=== PATIENT | female | born 1970 | race Caucasian/White ===

== ENCOUNTER 2017-12-12 15:10 | Emergency (ER) | payer MEDICARE, OTHER ==
[~2017-12-12] VITALS: Ht 565.3 cm; Wt 86.0 kg
[~2017-12-12 15:10] MED LIST: ALBU6.7H INH; DEXT20TA6 PO; LACT10SO PO; LISD70CA PO; OMEP40CA37 PO
[2017-12-12 15:15] VITALS: BP 126/88
[2017-12-12] MEDS ORDERED: ibuprofen tablet 400 MG TABLET PO ONE (15:50)
== END 2017-12-12 16:07 | disposition home or self-care (01) ==
LOC: ER 15:10
DX: M79.672 Pain in left foot (principal); M79.671 Pain in right foot; Z90.49 Acquired absence of other specified parts of digestive tract; Z98.890 Other specified postprocedural states; Z88.5 Allergy status to narcotic agent; Z88.0 Allergy status to penicillin; Z79.899 Other long term (current) drug therapy
CPT/HCPCS: 99282

== ENCOUNTER 2018-03-04 16:26 | Emergency (ER) | payer MEDICARE ==
[~2018-03-04] VITALS: Ht 162.6 cm; Wt 80.0 kg
[2018-03-04 16:28] VITALS: BP 119/79
[2018-03-04] MEDS ORDERED: albuterol 2.5 MG/3 ML nebule NEB ONE (17:05)
[2018-03-04] MEDS ORDERED: ALBU18HF2 INH (17:20)
== END 2018-03-04 17:35 | disposition home or self-care (01) ==
LOC: ER 16:27
DX: J45.909 Unspecified asthma, uncomplicated (principal); F41.9 Anxiety disorder, unspecified; F31.9 Bipolar disorder, unspecified; Z88.0 Allergy status to penicillin; Z90.49 Acquired absence of other specified parts of digestive tract; Z88.1 Allergy status to other antibiotic agents; Z88.5 Allergy status to narcotic agent
CPT/HCPCS: 94640; 94760; 99283